=== PATIENT | female | born 1970 | race Caucasian/White ===

== ENCOUNTER 2017-10-23 22:30 | Emergency (ER) | payer OTHER ==
[~2017-10-23] VITALS: Ht 167.6 cm; Wt 200.0 kg
[2017-10-24] MEDS ORDERED: MOTRIN800 MG PO (01:04)
[2017-10-24] MEDS ORDERED: NORCO 10/3251 TABLET PO (01:04)
[2017-10-24] MEDS ORDERED: VALIUM5 MG PO (01:04)
[2017-10-24 01:24] VITALS: BP 121/83
== END 2017-10-24 01:38 | disposition home or self-care (01) ==
LOC: EME 22:30
DX: M54.41 Lumbago with sciatica, right side (principal); G89.29 Other chronic pain
CPT/HCPCS: 99281; 99284; J1100; J3010